=== PATIENT | male | born 1970 | race Caucasian/White ===

== ENCOUNTER 2016-12-31 08:03 | Emergency (ER) | payer MEDICAID ==
[~2016-12-31] VITALS: Ht 172.7 cm; Wt 69.0 kg
[~2016-12-31 08:03] MED LIST: ALBU6.7H INH; PRED50 PO; ZITH250T PO
[2016-12-31 08:08] VITALS: BP 117/59; PULSE 55; RESP 16; TEMP 97.8; O2SAT 97
[2016-12-31] MEDS ORDERED: PROPARACAINE HCL 0.5% OPHT SOLN 15 ML BTL EACH EYE ONE (08:30)
[2016-12-31] MEDS ORDERED: TETRACAINE 0.5% OPTH SOLN 15 ML BTL RIGHT EYE ONE (08:30)
[2016-12-31] MEDS ORDERED: ERYTHROMYCIN 0.5% OPTH OINT 3.5 GM TUBO RIGHT EYE ONE (08:45)
[2016-12-31] MEDS ORDERED: ERYTOIN10 RIGHT EYE (08:56)
--- NOTE | 2016-12-31 08:56 | PD ---
HPI Chief Complaint: Eye Problems/Injury Time Seen by Provider: 08:23 Travel History International Travel<30 days: No Contact w/Intl Traveler<30days: No Traveled to known affect area: No History of Present Illness HPI 46-year-old male came to the emergency room after poking his right eye with the tree branch while he was working outside yesterday. His eye has been irritated since then with a foreign body sensation. It has been watering. No significant blurred vision no significant photophobia. He otherwise claims to be a healthy person. He did not seek any medical help prior to this or any medications. [facility] Past Medical History Narrative Medical List of his past medical, surgical, social and family history is reviewed from the nursing note. Cancer: No Cardiovascular Problems: No Chemotherapy: No Diabetes: No Diminished Hearing: No Endocrine: No Gastrointestinal Disorders: Yes Genitourinary: Yes (LEFT INGUINAL HERNIA- NOT REPAIRED) Immune Disorder: No Inguinal Hernia: Yes Musculoskeletal: Yes (Sciatica ) Neurologic: No Psychiatric: No Reproductive: No Respiratory: No Immunizations Current: Yes Radiation Therapy: No Tetanus Vaccination: Unknown Influenza Vaccination: No Past Surgical History Surgical History: No Previous Surgery Gynecologic Surgery: Yes Other Surgery: Yes (RIGHT INNER FOREARM ABSCESS I&D) Social History Alcohol Use: No Tobacco Use: Yes (1 PPD) Substance Use: Yes (Marijuana occ. ) Allergies-Medications (Allergen,Severity, Reaction): Coded Allergies: No Known Allergies (Verified , 12/31/16) Comments No known drug allergies. Reported Meds & Prescriptions Reported Meds & Active Scripts Active Erythromycin Opth Oint 5 Mg/Gm Oint 1 Applic RIGHT EYE BID Narrative Medication List of his home medications reviewed from the nursing note. Review of Systems Except as stated in HPI: all other systems reviewed are Neg Physical Exam Narrative GENERAL: Awake, alert, mild distress SKIN: Focused skin assessment warm/dry. HEAD: Atraumatic. Normocephalic. EYES: Pupils equal and round. No scleral icterus. Right scleral injection, large corneal abrasion on the superior half of the cornea seen with fluorecin. No globe perforation ENT: No nasal bleeding or discharge. Mucous membranes pink and moist. NECK: Trachea midline. No JVD. CARDIOVASCULAR: Regular rate and rhythm. No murmur appreciated. RESPIRATORY: No accessory muscle use. Clear to auscultation. Breath sounds equal bilaterally. GASTROINTESTINAL: Abdomen soft, non-tender, nondistended. Hepatic and splenic margins not palpable. MUSCULOSKELETAL: No obvious deformities. No clubbing. No cyanosis. No edema. NEUROLOGICAL: Awake and alert. No obvious cranial nerve deficits. Motor grossly within normal limits. Normal speech. PSYCHIATRIC: Appropriate mood and affect; insight and judgment normal. Data Data Last Documented VS Vital Signs Date Time Temp Pulse Resp B/P (MAP) Pulse Ox O2 Delivery O2 Flow Rate FiO2 12/31/16 09:15 12/31/16 08:08 97.8 55 16 97 Room Air Orders Orders Tetracaine 0.5% Opth Soln (Pontocaine 0. (12/31/16 08:30) Proparacaine 0.5% Opth Soln (Alcaine 0.5 (12/31/16 08:30) Erythromycin 0.5% Opth Oint (Ilotycin 0. (12/31/16 08:45) MDM Medical Decision Making Medical Screen Exam Complete: Yes Emergency Medical Condition: Yes Medical Record Reviewed: Yes Differential Diagnosis Corneal abrasion Narrative Course 8:48 AM based on the fluorecin stain I've decided to apply erythromycin ointment. However urged him to see the machine milker. I will discharge him home with erythromycin ointment and give him the machine milker's name and number to follow up with in 24 hours. Procedures Procedure Narrative Fluorecin eye stain: The right eye was anesthetized with 0.5% proparacaine 2 drops. Fluorescein strip was used to stain the eye. Wood's lamp was used and a large corneal abrasion on the superior half of the right cornea was noticed. Patient tolerated the procedure well. No foreign body was seen after partially everting the upper eyelid. EKG Prior to Arrival: No Diagnosis Primary Impression: Corneal abrasion Qualified Codes: S05.01XA - Injury of conjunctiva and corneal abrasion without foreign body, right eye, initial encounter Referrals: Debra Taveras MD 1 day Additional Instructions: Please follow-up with the machine milker was name and number been given to you within 24 hours. Please call to make the appointment. Apply the ointment as per the direction to the eye. Return to the ER if the condition worsens or any other new concerns. Med/Other Pt SpecificInfo: Prescription(s) given Scripts Erythromycin Opth Oint (Erythromycin Opth Oint) 5 Mg/Gm Oint 1 APPLIC RIGHT EYE BID for Infection, #1 TUBE 0 Refills Prov: Mary Greco MD 12/31/16 Disposition: 01 DISCHARGE HOME Condition: Stable Mary Greco MD Dec 31, 2016 08:56
== END 2016-12-31 09:15 | disposition home or self-care (01) ==
LOC: PHED 08:03
DX: S05.01XA Injury of conjunctiva and corneal abrasion without foreign body, right eye, initial encounter (principal); F17.200 Nicotine dependence, unspecified, uncomplicated; Z87.19 Personal history of other diseases of the digestive system; Z87.39 Personal history of other diseases of the musculoskeletal system and connective tissue; W22.8XXA Striking against or struck by other objects, initial encounter
CPT/HCPCS: 99283